=== PATIENT | male | born 1970 | race Caucasian/White ===

== ENCOUNTER 2019-10-26 13:30 | Emergency (ER) | payer OTHER ==
[~2019-10-26] VITALS: Ht 162.6 cm; Wt 109.8 kg
[2019-10-26 13:34] VITALS: Ht 162.6 cm; Wt 109.8 kg
[2019-10-26 16:17] VITALS: BP 130/77
== END 2019-10-26 16:17 | disposition home or self-care (01) ==
LOC: ED 13:30
DX: M79.662 Pain in left lower leg (principal); M25.571 Pain in right ankle and joints of right foot; G89.29 Other chronic pain; W20.8XXA Other cause of strike by thrown, projected or falling object, initial encounter; Y93.89 Activity, other specified; Y92.89 Other specified places as the place of occurrence of the external cause; Y99.0 Civilian activity done for income or pay
CPT/HCPCS: Q0092